=== PATIENT | male | born 1965 | race Caucasian/White ===

== ENCOUNTER → 2020-12-13 | Outpatient (CLI) | payer OTHER ==
[~2020-12-13] MED LIST: ABC PLUS TABLE1 EACH PO; Advil200 M1 PO; Gas-X125 MG PO; LISI20 PO; METF500 PO; Multivitamin1 EAC1 PO; Vitamin C100 M1 PO
[2020-12-13 14:31] LABS: CHOL/HDL RATIO 4.8; Cholesterol 249 mg/dL (50-200); HDL Cholesterol 52 mg/dL (>39); LDL/HDL RATIO 2.6; Low Density Lipoprotein Chol 133 mg/dL (0-110); Triglycerides 318 mg/dL (30-160); Very Low Density Lipoprot Chol 63 mg/dL (6-32)
== END | disposition home or self-care (01) ==
LOC: LAB SHORT 12:25
PROVIDERS: Family Medicine
DX: E78.5 Hyperlipidemia, unspecified (principal)
CPT/HCPCS: 80061